=== PATIENT | male | born 1960 | race Two or more races ===

== ENCOUNTER 2024-07-20 19:13 | Emergency (ER) | payer OTHER ==
[~2024-07-20] VITALS: Ht 167.6 cm; Wt 88.5 kg
[2024-07-20] MEDS ORDERED: chlorproMAZINE HCL 25 MG TAB PO ONE (20:30)
--- NOTE | 2024-07-20 20:37 | ECG ---
[facility] Test Date: 2024-07-20 Test Time: 20:36:47 Pat Name: FERMIN CUENCA Department: ED Room: Gender: Take Down Sorter: VICKIE : 1960 Requested By: PEÑA TAO Order Number: [id number] Reading MD: Measurements Intervals [place] Rate: 83 P: 49 SD: 153 QRS: 24 QRSD: 98 T: 38 QT: 366 QTc: 430 Interpretive Statements Sinus rhythm Please click the below link to view image of tracing.
[2024-07-20] MEDS ORDERED: chlorproMAZINE HCL 25 MG/1 ML AMP IM ONE (21:45)
[2024-07-20] MEDS: chlorproMAZINE HCL 25 MG TAB PO ONE (22:37)
[2024-07-20 22:39] VITALS: TEMP 98.3
[2024-07-20] MEDS ORDERED: CHLO25TA PO (22:59)
--- NOTE | 2024-07-20 22:59 | ED.PDOC ---
History of Present Illness HPI Comments This patient is a Syriac-speaking only 64-year-old morbidly obese male who arrives to the ED today for evaluation of chest pain related to hiccup concerns for the past eight days. Patient states he has had nearly intractable hiccups for the past eight days. Patient's has some brief respite on multiple events, but for the most part has been consistent. Patient states it was causing chest and abdominal pain concerns. Patient denies any fever. Vital signs were stable on arrival. Chief Complaint: Chest Pain Time Seen by MD: 19:47 Reviewed Notes: Nurses Notes Allergies: Coded Allergies: NO KNOWN ALLERGIES (Unverified , 07/20/24) Home Meds Active Scripts Chlorpromazine Hcl (Thorazine) 25 Mg Tb, 25 MG PO Q6HP PRN, #10 TAB Prov:LESLIE GARCÍA [place] PAC 07/20/24 Information Source: Patient, Friend Mode of Arrival: Ambulatory Severity: Moderate Timing: Days Duration: Since onset Prehospital treatment: None Past Medical History PAST MEDICAL HISTORY: Denies Surgical History: Denies all surgeries Family History Family History: Reviewed,noncontributory to illness, No family hx of Cancer, No family hx of DM, No family hx of Heart rosita, No family hx of HTN, No family hx ofKidney rosita, No family hx of Liver rosita, No family hx of Lung rosita, No family hx of Stroke Social History Smoker: Non-Smoker Alcohol: Denies ETOH Use Drugs: Denies Drug Use Lives In: Home Constitutional: denies: chills, diaphoresis, fatigue, fever, malaise, sweats, weakness, others EENTM: denies: blurred vision, double vision, ear bleeding, ear discharge, ear drainage, ear pain, ear ringing, eye pain, eye redness, hearing loss, mouth pain, mouth swelling, nasal discharge, nose bleeding, nose congestion, nose pain, photophobia, tearing, throat pain, throat swelling, voice changes, others Respiratory: denies: cough, hemoptysis, orthopnea, SOB at rest, shortness of breath, SOB with excertion, stridor, wheezing, others Cardiovascular: reports: chest pain; denies: dizzy spells, diaphoresis, Dyspnea on exertion, edema, irregular heart beat, left arm pain, lightheadedness, palpitations, PND, syncope, others Gastrointestinal: reports: abdominal pain; denies: abdomen distended, blood streaked bowels, constipated, diarrhea, dysphagia, difficulty swallowing, hematemesis, melena, nausea, poor appetite, poor fluid intake, rectal bleeding, rectal pain, vomiting, others Genitourinary: denies: burning, dysuria, flank pain, frequency, hematuria, incontinence, penile discharge, penile sore, pain, testicle pain, testicle swelling, urgency, others Neurological: denies: dizziness, fainting, headache, left sided numbness, left sided weakness, numbness, paresthesia, pre-existing deficit, right sided numbness, right sided weakness, seizure, speech problems, tingling, tremors, weakness, others Musculoskeletal: denies: back pain, gout, joint pain, joint swelling, muscle pain, muscle stiffness, neck pain, others Integumetry: denies: bruises, change in color, change in hair/nails, dryness, laceration, lesions, lumps, rash, wounds, others Allergic/Immunocompromised: denies: Difficulty Healing, Frequent Infections, Hives, Itching, others Hematologic/Lymphatic: denies: anemia, blood clots, easy bleeding, easy bruising, swollen glands, others Endocrine: denies: excessive hunger, excessive sweating, excessive thirst, excessive urination, flushing, intolerance to cold, intolerance to heat, unexplained weight gain, unexplained weight loss, others Psychiatric: denies: anxiety, bipolar disorder, depression, hopeless, panic disorder, schizophrenia, sleepless, suicidal, others Physical Exam General Appearance: Moderate Distress (Moderate distress due to the length of time the patient has had hiccups. Patient displays hiccups at time of evaluation.), Normal HEENT: Normal ENT Inspection, Pharynx Normal, TMs Normal Neck: Full Range of Motion, Non-Tender, Normal, Normal Inspection Respiratory: Chest Non-Tender, Lungs Clear, No Accessory Muscle Use, No Respiratory Distress, Normal Breath Sounds, Other (Unable to increase any chest pain concerns with palpation. No signs of trauma.) Cardiovascular: No Edema, No JVD, No Murmur, No Gallop, Normal Peripheral Pulses, Regular Rate/Rhythm Breast Exam: Deferred Gastrointestinal: No Organomegaly, No Pulsatile Mass, Normal Bowel Sounds, Soft, Other (Diffuse periumbilical and epigastric tenderness to palpation. No pulsatile masses. No signs of trauma.) Genitalia: Deferred Pelvic: Deferred Rectal: Deferred Extremities: No calf tenderness, Normal capillary refill, Normal inspection, Normal range of motion, Non-tender, No pedal edema Neurologic: Alert, maintainer operator II-XII nml as Tested, No Motor Deficits, Normal Affect, Normal Mood, No Sensory Deficits Cerebellar Function: Normal Reflexes: Normal Skin: Dry, Normal Color, Warm Lymphatic: No Adenopathy Was a procedure done? Was a procedure done?: No Differential Dx Considerations may include: Hiccups, acute coronary syndrome X-Ray, Labs, Meds, VS Vital Signs Date Time Temp Pulse Resp B/P (MAP) Pulse Ox O2 Delivery O2 Flow Rate FiO2 07/20/24 22:39 98.3 84 16 147/71 (96) 98 98.3 07/20/24 20:36 83 07/20/24 19:20 87 07/20/24 19:20 98.2 87 16 139/75 (96) 99 Lab Test 07/20/24 20:38 07/20/24 19:25 Range/Units Troponin I High Sensitivity 5 5 </=54 ng/L Current Medications Medications (Trade) Dose Ordered Sig/Dereck Route Start Time Stop Time Status Last Admin Chlorpromazine HCl (Thorazine Tablet) 25 mg ONCE ONCE PO 07/20/24 22:30 07/20/24 22:31 DC 07/20/24 22:37 X-Ray, Labs, Meds, VS Comment All studies performed the ED were evaluated by me personally. Patient's troponins were unremarkable. Patient seemed to resolve his sickle concern after medication was dispensed. Advised patient I will dispensed him a short course for the next few days. Advised patient talk to his primary care provider in the next week or two for discussions related to his hiccup issues. Time of 1ST Reevaluation: 22:56 Reevaluation 1ST: Improved Consultation: PCP Patient Education/Counseling: Diagnosis, Treatment Family Education/Counseling: Diagnosis, Treatment Departure 1 Departure Time of Disposition: 22:56 Impression: Primary Impression: Hiccups Disposition: 01 HOME / SELF CARE / HOMELESS Condition: Stable Additional Instructions: Advise utilizing medication as needed for hiccups relief. Patient should follow up with his primary care provider for discussions related to his recent hiccup concerns. e-Prescriptions Chlorpromazine Hcl (Thorazine) 25 Mg Tb 25 MG PO Q6HP PRN, #10 TAB Prov: LESLIE GARCÍA PAC 07/20/24 Discharged With: Self, Spouse Critical Care Note Critical Care Time?: No Stability Stability form required: No Heart Score Heart Score: Heart Score Response (Comments) Value History N/A 0 EKG N/A 0 Age N/A 0 Risk Factors N/A 0 Troponin N/A 0 Total 0 LESLIE GARCÍA PAC Jul 20, 2024 22:59
[2024-07-21 02:13] VITALS: BP 100/64; PULSE 88; RESP 16; O2SAT 99
[2024-07-21] MEDS: chlorproMAZINE HCL 25 MG/1 ML AMP IM ONE (02:15)
--- NOTE | 2024-07-26 07:16 | ECG ---
[facility] Test Date: 2024-07-20 Test Time: 19:20:25 Pat Name: FERMIN CUENCA Department: er Room: Gender: M Hospice Spiritual Care Coordinator: : 1960 Requested By: LESLIE GARCÍA Order Number: [id number] Reading MD: Edouard Whittington Measurements Intervals [place] Rate: 87 P: 31 SD: 135 QRS: 18 QRSD: 93 T: 30 QT: 357 QTc: 430 Interpretive Statements Sinus rhythm Electronically Signed On 07-26-2024 9:42:46 PST by Edouard Whittington Please click the below link to view image of tracing.
== END 2024-07-21 02:15 | disposition home or self-care (01) ==
LOC: ER 19:13
DX: R06.6 Hiccough (principal); R07.9 Chest pain, unspecified; R10.9 Unspecified abdominal pain; Z79.899 Other long term (current) drug therapy
CPT/HCPCS: 36415; 84484; 93005; 99284; Q0161